=== PATIENT | female | born 1960 | race American Indian/Alaskan Native ===

== ENCOUNTER 2016-09-11 02:05 | Emergency (ER) | payer SELFPAY ==
[2016-09-11] MEDS ORDERED: SODIUM BICARBONATE IV ONE (02:20)
[2016-09-11] MEDS ORDERED: ADRENALIN ONE (02:20)
[2016-09-11] MEDS ORDERED: CALCIUM CHLORIDE IV ONE (02:20)
[2016-09-11] MEDS ORDERED: ATROPINE 0.1% (CARDIAC) ONE (02:20)
--- NOTE | 2016-09-11 03:08 | Emergency Department Report ---
ED CPR HPI - General Chief Complaint: Cardiac Arrest/CPR Stated Complaint: CARDIAC ARREST Time Seen by Provider: 09/11/16 03:02 - History of Present Illness Initial Comments: Pt is a 56 yr old F, unknown to me, with no PMhx who presents via EMS in cardiac arrest. As per daughter, patient was found gasping for air in her bedroom when she suddenly became unresponsive. Pt's daughter called 911 and started CPR. Upon EMS arrival patient in cardiac arrest. Pt was placed on a irena device, given epi x 3, 1 shock for V-fib, and a adán tube was placed for airway. Pt had been down for 45 minutes upon arrival at 0210 in asystole. CPR was continued. Pt was intubated with 7.5 ETT with glidescope x 1 attempt. Pt had solid food stuff in her mouth, oropharynx, and airway. Pt cycled between ROSC and asystole arrest x 3 times. Pt was given a total of epi x 8 , sodium bicarbonate x2, calcium x2, atropine x3 . Epinephrine infusion was started during one ROSC episode. Upon final arrest, patient had cardiac standstill seen via US. Time of at 0247. Complaint: found unresponsive ED Review of Systems ROS: Stated complaint: CARDIAC ARREST Other details as noted in HPI Comment: Unobtainable due to pts medical conditions ED Physical Exam - General Limitations: Other (cardiac arrest) General appearance: other (cardiac arrest, no spontaneous movements) - Head Head exam: Present: atraumatic, normocephalic - Eye Eye exam: Present: other (injected) Pupils: Present: other (fixed, dilated) - ENT ENT exam: Present: other (adán tube in place, switched to ETT) - Neck Neck exam: Present: normal inspection - Respiratory Respiratory exam: Present: normal lung sounds bilaterally (via ETT). Absent: rales, rhonchi - Cardiovascular Cardiovascular Exam: Present: other (asystole on monitor) - GI/Abdominal GI/Abdominal exam: Present: soft, distended - Extremities Exam Extremities exam: Present: normal inspection - Back Exam Back exam: Present: normal inspection - Neurological Exam Neurological exam: Present: other (intubated, unresponsive) - Skin Skin exam: Present: warm, dry, intact ED Medical Decision Making - EKG Data -: EKG Interpreted by Me - EKG Data 09/11/16 04:34 Time 225 junctional bradycardia at 40 bpm, low voltage, STEMI, ST elevations in the lateral leads no reciprocal change status post CPR Time 226 junctional bradycardia 44 bpm low voltage, STEMI process in the lateral leads persists with no reciprocal change status post CPR Critical Care Time: Yes (45 minutes) Critical care time in (mins) excluding proc time.: 45 Critical care attestation.: If time is entered above; I have spent that time in minutes in the direct care of this critically ill patient, excluding procedure time. Critical Care Time: 45 minutes. ED Disposition Clinical Impression: Cardiac arrest, Disposition: Is pt being admited?: No Condition: Poor Referrals: PRIMARY CARE, [Primary Care Provider] - 3-5 Days
== END 2016-09-11 06:00 ==
LOC: ED 02:05
DX: I46.9 Cardiac arrest, cause unspecified (principal)
CPT/HCPCS: 92950; 99291; J0171; J0461